=== PATIENT | male | born 1945 | race Caucasian/White ===

== ENCOUNTER 2021-09-24 14:22 | Inpatient (IN) | payer MEDICARE ==
[~2021-09-24] VITALS: Ht 190.5 cm; Wt 130.0 kg
[2021-09-24] MEDS ORDERED: FENTANYL CITRATE/PF 100MCG/2 ML INJ IV ONE ×2 (15:30→21:45)
[2021-09-24 16:13] LABS: BASOPHILS # (AUTO) 0.1 (0.0-0.1); BASOPHILS % 0.4 % (0.0-1.0); EOSINOPHILS # (AUTO) 0.1 (0.0-0.4); EOSINOPHILS % 0.4 % (0.0-6.0); HEMATOCRIT 42.5 % (38.2-49.6); HEMOGLOBIN 14.1 g/dL (14.0-18.0); LYMPHOCYTES # (AUTO) 1.4 (1.0-3.2); MEAN CORPUSCULAR HEMOGLOBIN 30.1 pg (28-32); MEAN CORPUSCULAR HGB CONC 33.2 g/dL (31-35); MEAN CORPUSCULAR VOLUME 90.6 fL (81-99); MONOCYTES # (AUTO) 0.7 (0.2-0.8); MONOCYTES % 5.8 % (4.4-11.3); NEUTROPHILS # (AUTO) 9.1 (2.1-6.9); PLATELET COUNT 217 x10e3/uL (140-360); RED BLOOD COUNT 4.69 x10e6/uL (4.3-5.7); RED CELL DISTRIBUTION WIDTH 11.9 % (11.7-14.4)
[2021-09-24 16:31] LABS: ALBUMIN 3.5 g/dL (3.5-5.0); ANION GAP 15.1 mmol/L (8-16); CALCIUM 8.4 mg/dL (8.4-10.2); CREATININE, SERUM 0.92 mg/dL (0.72-1.25); POTASSIUM 4.1 mmol/L (3.5-5.1)
[2021-09-24] MEDS ORDERED: Morphine 4mg INJECTION 4 MG/ML INJ IV STA (18:07)
[2021-09-24] MEDS ORDERED: ONDANSETRON HCL INJ 2MG/ML 2ML 2 MG/ML VIAL IV PRN (19:00)
[2021-09-24] MEDS: SODIUM CHLORIDE 0.9% 1000ML 1,000 ML IV SCH (19:07)
[2021-09-24] MEDS ORDERED: FENTANYL CITRATE/PF 100MCG/2 ML INJ ONE (21:31)
[2021-09-25] VITALS (7 sets, daily range): BP systolic 137–151; BP diastolic 70–79
[2021-09-25] MEDS: Morphine 4mg INJECTION 4 MG/ML INJ IV PRN ×3 (01:37→15:15)
[2021-09-25 06:03] LABS: BASOPHILS % 0.2 % (0.0-1.0); EOSINOPHILS # (AUTO) 0.1 (0.0-0.4); EOSINOPHILS % 0.6 % (0.0-6.0); HEMATOCRIT 41.3 % (38.2-49.6); HEMOGLOBIN 13.7 g/dL (14.0-18.0); LYMPHOCYTES # (AUTO) 2.4 (1.0-3.2); LYMPHOCYTES % 28.3 % (18.0-39.1); MEAN CORPUSCULAR HEMOGLOBIN 30.4 pg (28-32); MEAN CORPUSCULAR HGB CONC 33.2 g/dL (31-35); MEAN CORPUSCULAR VOLUME 91.6 fL (81-99); MONOCYTES # (AUTO) 0.8 (0.2-0.8); MONOCYTES % 8.8 % (4.4-11.3); NEUTROPHILS # (AUTO) 5.3 (2.1-6.9); NEUTROPHILS % 61.9 % (38.7-80.0); PLATELET COUNT 220 x10e3/uL (140-360); RED BLOOD COUNT 4.51 x10e6/uL (4.3-5.7)
[2021-09-25 06:36] LABS: ALBUMIN 3.3 g/dL (3.5-5.0); ALBUMIN/GLOBULIN RATIO 0.9 (0.8-2.0); CALCIUM 8.4 mg/dL (8.4-10.2); CREATININE, SERUM 0.78 mg/dL (0.72-1.25)
[2021-09-25] MEDS: SODIUM CHLORIDE 0.9% 1000ML 1,000 ML IV SCH (11:20)
[2021-09-26] VITALS (7 sets, daily range): BP systolic 108–169; BP diastolic 62–84
[2021-09-26] MEDS: Morphine 4mg INJECTION 4 MG/ML INJ IV PRN (01:41)
[2021-09-26] MEDS ORDERED: SODIUM CHLORIDE 0.9% 500ML 500 ML ONE (06:08)
[2021-09-26] MEDS ORDERED: Vancomycin IV 500 MG ONE (06:08)
[2021-09-26] MEDS ORDERED: TRANEXAMIC ACID 20 ML ONE (06:08)
[2021-09-26] MEDS: SODIUM CHLORIDE 0.9% 1000ML 1,000 ML IV SCH (07:16)
[2021-09-26] MEDS ORDERED: ROPIVACAINE 246.25 MG, EPINEPHRINE HCL 1:1000 1ML 0.5 MG, CLONIDINE HCL 0.08 MG, KETORO... INJ ONE ×5 (07:30)
[2021-09-26] MEDS ORDERED: [UNRECOGNIZED DRUG - REMARK] (07:46)
[2021-09-26] MEDS ORDERED: POVIDONE IODINE 0.05% 0.05 % ML PO ONE (08:11)
[2021-09-26] MEDS ORDERED: ACETAMINOPHEN 1000 MG/100 ML IV ONE (08:11)
[2021-09-26] MEDS ORDERED: SEVOFLURANE INHAL SOLN 250 ML PEN BTL ONE (08:11)
[2021-09-26] MEDS ORDERED: ONDANSETRON HCL INJ 2MG/ML 2ML 2 MG/ML VIAL ONE (08:11)
[2021-09-26] MEDS ORDERED: DEXAMETHASONE SOD PHOS INJ 4 MG/ML SDV ONE (08:11)
[2021-09-26] MEDS ORDERED: LIDOCAINE HCL 2% LOCAL INJ 5 ML SDV VIAL INJ ONE (08:11)
[2021-09-26] MEDS ORDERED: PROPOFOL IV EMULSION 10 MG/ML 20 ML VIAL ONE (08:11)
[2021-09-26] MEDS ORDERED: KETOROLAC TROMETHAMINE 30 MG/ML VIAL IV PRN (09:00)
[2021-09-26] MEDS ORDERED: HYDROCODONE/APAP 7.5MG-325MG 1 EA TAB PO PRN (09:00)
[2021-09-26] MEDS ORDERED: HYDROCODONE/APAP 5MG-325MG TAB PO PRN (09:00)
[2021-09-26] MEDS ORDERED: DOCUSATE SODIUM 100 MG CAP PO PRN (09:00)
[2021-09-26] MEDS ORDERED: ONDANSETRON HCL INJ 2MG/ML 2ML 2 MG/ML VIAL IV PRN (09:00)
[2021-09-26] MEDS ORDERED: ZOLPIDEM TARTRATE 5 MG TAB PO PRN (09:00)
[2021-09-26] MEDS ORDERED: SODIUM CHLORIDE 0.9% 1000ML 1,000 ML IV SCH (09:00)
[2021-09-26] MEDS ORDERED: DIPHENHYDRAMINE HCL INJ 50 MG/ML VIAL IV PRN (09:00)
[2021-09-26] MEDS ORDERED: ACETAMINOPHEN 650 MG SUPP PR PRN (09:00)
[2021-09-26 09:52] LABS: HEMATOCRIT 41.5 % (38.2-49.6); HEMOGLOBIN 13.8 g/dL (14.0-18.0)
[2021-09-26] MEDS ORDERED: MIDAZOLAM HCL 2 MG/2 ML VIAL ONE (10:08)
[2021-09-26] MEDS ORDERED: FENTANYL CITRATE/PF 100MCG/2 ML INJ ONE (10:08)
[2021-09-26] MEDS: ASPIRIN 325 MG TAB PO SCH ×2 (10:51→16:41)
[2021-09-26] MEDS: CELECOXIB 200 MG CAP PO SCH ×2 (10:51→16:41)
[2021-09-27] VITALS (10 sets, daily range): BP systolic 117–139; BP diastolic 60–71
[2021-09-27 05:34] LABS: HEMATOCRIT 33.4 % (38.2-49.6); HEMOGLOBIN 11.4 g/dL (14.0-18.0)
[2021-09-27] MEDS: CELECOXIB 200 MG CAP PO SCH ×2 (08:27→16:53)
[2021-09-27] MEDS: ASPIRIN 325 MG TAB PO SCH ×2 (08:28→16:53)
[2021-09-27] MEDS ORDERED: ONDANSETRON HCL 4 MG ORAL DISINTEGRATING TAB PO PRN (08:30)
[2021-09-27] MEDS ORDERED: ACETAMINOPHEN 1000 MG/100 ML IV PRN (09:00)
[2021-09-28] VITALS: BP 122/67
[2021-09-28 04:00] VITALS: BP 130/62
[2021-09-28 07:17] LABS: HEMATOCRIT 31.2 % (38.2-49.6); HEMOGLOBIN 10.5 g/dL (14.0-18.0)
[2021-09-28 08:00] VITALS: BP 121/60
[2021-09-28] MEDS: ASPIRIN 325 MG TAB PO SCH (09:00)
[2021-09-28 09:15] VITALS: BP 121/60
[2021-09-28 09:35] VITALS: BP 121/60
[2021-09-28] MEDS: CELECOXIB 200 MG CAP PO SCH (09:55)
[2021-09-28 12:54] VITALS: BP 140/69
[2021-09-28] MEDS ORDERED: LOVENOX40 MG/0.4 SC (16:05)
== END 2021-09-28 17:15 | DRG 481 ==
LOC: ER 14:33 → ERHOLD 18:48 → MED/SURG 09-25 11:26
PROVIDERS: ADMIT Internal Medicine; ATTEND Internal Medicine
PROC: 0QS804Z Reposition Right Femoral Shaft with Internal Fixation Device, Open Approach (ICD-10-PCS; principal; 2021-09-26 06:53)
DX: S72.301A Unspecified fracture of shaft of right femur, initial encounter for closed fracture (principal); M97.01XA Periprosthetic fracture around internal prosthetic right hip joint, initial encounter; W10.8XXA Fall (on) (from) other stairs and steps, initial encounter; Y92.018 Other place in single-family (private) house as the place of occurrence of the external cause; J44.9 Chronic obstructive pulmonary disease, unspecified; G47.33 Obstructive sleep apnea (adult) (pediatric); E66.9 Obesity, unspecified; Z68.35 Body mass index [BMI] 35.0-35.9, adult; Z20.822 Contact with and (suspected) exposure to COVID-19; Z96.641 Presence of right artificial hip joint
CPT/HCPCS: 0223U; 36415; 80053; 85014; 85018; 85025; 86850; 86900; 93005; 93306; 94799; 99251; 99285; C1713; J0171; J0690; J1100; J1885; J2001; J2250; J2270; J2405; J2795; J3010; J3370; J7030; J7040